=== PATIENT | female | born 1985 | race Caucasian/White ===

== ENCOUNTER 2022-06-17 12:24 | Outpatient (CLI) | payer BC, SELFPAY ==
[2022-06-18 13:39] LABS: Albumin* 3.9 g/dL (3.3-5.0)
[2022-06-18 13:40] LABS: Chloride* 102 mmol/L (96-114); Potassium* 3.9 mmol/L (3.6-5.1); Sodium* 138 mmol/L (135-149)
[2022-06-18 13:42] LABS: Bilirubin Total* 1.5 mg/dL (0.1-1.5); Carbon Dioxide* 29 mmol/L (20-32); Cholesterol* 158 mg/dL (90-199); Creatinine* 0.7 mg/dL (0.5-1.5); Estimated Glomerular Filt Rate 114 ml/min
[2022-06-18 13:43] LABS: Alanine Aminotransferase* 19 U/L (4-35); Alkaline Phosphatase* 56 U/L (40-150); Aspartate Amino Transferase* 30 U/L (12-35); Blood Urea Nitrogen* 12 mg/dL (5-24); Calcium* 8.5 mg/dL (8.4-10.6); Glucose* 85 mg/dL (60-115); HDL Cholesterol* 86 mg/dL (>=50); LDL Cholesterol Calculated 63 mg/dL (<100); Total Protein* 6.8 g/dL (6.0-8.3); Triglycerides* 43 mg/dL (40-149)
== END 2022-06-17 12:25 | disposition home or self-care (01) ==
LOC: LKVREF 12:24
PROVIDERS: Visit Provider Physician Assistant Medical
DX: Z01.419 Encounter for gynecological examination (general) (routine) without abnormal findings (principal); Z11.3 Encounter for screening for infections with a predominantly sexual mode of transmission
CPT/HCPCS: 87624; 88175

== ENCOUNTER 2022-06-18 10:05 | Outpatient (CLI) | payer BC, SELFPAY | END 2022-06-18 10:06 | disposition home or self-care (01) | LOC: LKVREF 06-21 13:15 | PROVIDERS: Visit Provider Physician Assistant Medical | DX: Z13.0 Encounter for screening for diseases of the blood and blood-forming organs and certain disorders involving the immune mechanism (principal); Z13.1 Encounter for screening for diabetes mellitus; Z13.220 Encounter for screening for lipoid disorders | CPT/HCPCS: 80053; 80061; 84443; 85018 ==

== ENCOUNTER 2022-10-01 07:07 | Outpatient (CLI) | payer BC, SELFPAY ==
--- NOTE | 2022-10-01 07:15 | CRLHL7_ITS ---
For Patients: As a result of the Century Cures Act, medical imaging exams and procedure reports are released immediately into your electronic medical record. You may view this report before your referring provider. If you have questions, please contact your health care provider. INDICATION: mid pelvic pain COMPARISON: none TECHNIQUE: 2D sinha scale and color Doppler images were acquired of the pelvis using a transabdominal and transvaginal approach. Power Doppler evaluation of both ovaries also performed. FINDINGS: Sonographic images demonstrate a normal size and smooth outer contour of the uterus. Uterus measures 9.0 cm in length by 4.8 cm in AP diameter by 5.3 cm in transverse dimension. The myometrium has a normal uniform echotexture. The endometrial lining measures 12 mm in composite thickness. The right ovary measures 3.2 x 2.2 x 3.0 cm in size and the left ovary measures 4.7 x 3.4 x 3.4 cm. The ovaries demonstrate normal arterial and venous blood flow on color Doppler analysis. Normal power Doppler evaluation of both ovaries. Hypoechoic cyst right ovary measuring 1.4 x 1.6 x 1.3 cm. Simple anechoic cyst left ovary measuring 2.9 x 2.4 x 2.9 cm. There are no suspicious fluid collections within the cul-de-sac. IMPRESSION: Hemorrhagic right ovarian cyst measuring 1.6 cm. Simple left ovarian cyst measuring 2.9 cm. No torsion. No excess pelvic free fluid. No uterine fibroid. Dictated by Hernan Gipson MD @ 10/01/2022 8:29:46 AM (Electronically Signed)
== END 2022-10-01 07:08 | disposition home or self-care (01) ==
LOC: US 07:08
PROVIDERS: PCP Physician Assistant Medical; Visit Provider Obstetrics & Gynecology
DX: R10.2 Pelvic and perineal pain (principal); N83.201 Unspecified ovarian cyst, right side; N83.202 Unspecified ovarian cyst, left side
CPT/HCPCS: 76830; 76856; 93976

== ENCOUNTER 2023-07-30 08:52 | Outpatient (CLI) | payer BC, SELFPAY ==
[2023-07-30 14:51] LABS: Chlamydia DNA Amplified* NOT DETECTED (No Detected); GC DNA Amplified* NOT DETECTED (No Detected)
== END 2023-07-30 08:53 | disposition home or self-care (01) ==
PROVIDERS: PCP Physician Assistant Medical; Visit Provider Physician Assistant Medical
DX: Z00.00 Encounter for general adult medical examination without abnormal findings (principal); Z11.3 Encounter for screening for infections with a predominantly sexual mode of transmission; Z13.0 Encounter for screening for diseases of the blood and blood-forming organs and certain disorders involving the immune mechanism; Z13.1 Encounter for screening for diabetes mellitus; Z13.6 Encounter for screening for cardiovascular disorders
CPT/HCPCS: 80053; 80061; 84443; 87491; 87591

== ENCOUNTER 2023-08-21 14:21 | Outpatient (CLI) | payer BC, SELFPAY | END 2023-08-21 14:22 | disposition home or self-care (01) | LOC: NFLDREF 08-24 17:32 | PROVIDERS: PCP Physician Assistant Medical; Referring Provider Physician Assistant Medical; Visit Provider Physician Assistant Medical | DX: R17 Unspecified jaundice (principal) | CPT/HCPCS: 80076; 86703; 86803 ==

== ENCOUNTER 2023-10-24 09:49 | Outpatient (CLI) | payer BC, SELFPAY ==
--- NOTE | 2023-10-24 10:15 | CRLHL7_ITS ---
For Patients: As a result of the Cures Act, medical imaging exams and procedure reports are released immediately into your electronic medical record. You may view this report before your referring provider. If you have questions, please contact your health care provider. INDICATION: First trimester scan, establish dates. COMPARISON: None. TECHNIQUE: Real-time sinha-scale imaging of the pelvis was performed. FINDINGS: Sonographic imaging demonstrates a single living intrauterine gestation. The embryo demonstrates a regular cardiac rate measuring 163 beats per minute. The embryo`s crown-rump length measurement of 3.2 cm corresponds to a gestational age of 10 weeks 1 day with a sonographic due date of 05/20/2024. There is a normal-appearing yolk sac. There are no gross abnormalities noted within the embryo at this early state of development. The gestational sac has a normal appearance. There is no evidence of a perigestational hemorrhage. The amount of fluid within the sac appears appropriate for gestational age. The cervix is closed. The myometrium appears normal. The ovaries are of normal size. There are no suspicious fluid collections noted in the cul-de-sac. IMPRESSION: Normal first trimester OB ultrasound exam. Gestational age calculated at 10 weeks 1 day with a sonographic due date of 05/20/2024. Dictated by Hernan Gipson MD @ 10/30/2023 6:24:37 AM (Electronically Signed)
== END 2023-10-24 09:50 | disposition home or self-care (01) ==
LOC: US 10:04
PROVIDERS: PCP Physician Assistant Medical; Visit Provider Advanced Practice Midwife
DX: Z34.91 Encounter for supervision of normal pregnancy, unspecified, first trimester (principal); Z3A.10 10 weeks gestation of pregnancy
CPT/HCPCS: 76817; 80076

== ENCOUNTER 2023-11-05 16:30 | Outpatient (CLI) | payer BC, SELFPAY | END 2023-11-05 16:31 | disposition home or self-care (01) | LOC: NFLDREF 11-12 16:17 | PROVIDERS: PCP Physician Assistant Medical; Referring Provider Physician Assistant Medical; Visit Provider Physician Assistant | DX: Z34.91 Encounter for supervision of normal pregnancy, unspecified, first trimester (principal) | CPT/HCPCS: 86592; 86703; 86704; 86706; 86762; 86787; 86803; 86850; 86900; 86901; 87086; 87340 ==

== ENCOUNTER 2024-02-24 14:55 | Outpatient (CLI) | payer BC, SELFPAY ==
--- NOTE | 2024-02-24 16:00 | US_ITS ---
Patient: CECILIA KOCH Facility:?[facility] Patient ID:?[id number] Site Patient ID:?[id number]. Site :?[id number] Study:?US-Extremity Right LEV-02/24/2024 3:38:48 PM Ordering Physician:LEYDA NEFF Final Report: INDICATION: Right leg pain. COMPARISON: None available. TECHNIQUE: Static and compression grayscale and spectral (including color) Doppler ultrasound of the right lower extremity. FINDINGS: Deep veins: The right common femoral, deep femoral, superficial femoral, popliteal, posterior tibial, peroneal and contralateral left common femoral veins are patent and free of clot. Superficial veins: The imaged right great saphenous vein is patent and free of clot. Extravascular findings: No significant incidental findings. IMPRESSION: No evidence of DVT in the right lower extremity. Dictated by Tyler Henry MD @ 02/24/2024 3:57:28 PM Signed by:?Tyler Henry MD @02/24/2024 3:57:28 PM (Electronic Signature)
== END 2024-02-24 14:56 | disposition home or self-care (01) ==
LOC: US 14:55
PROVIDERS: PCP Physician Assistant Medical; Visit Provider Obstetrics & Gynecology
DX: M79.604 Pain in right leg (principal)
CPT/HCPCS: 86592; 93971

== ENCOUNTER 2024-03-31 08:01 | Outpatient (CLI) | payer BC, SELFPAY ==
--- NOTE | 2024-03-31 08:15 | CRLHL7_ITS ---
For Patients: As a result of the Century Cures Act, medical imaging exams and procedure reports are released immediately into your electronic medical record. You may view this report before your referring provider. If you have questions, please contact your health care provider. INDICATION: Third trimester scan, evaluate growth. IVF, AMA COMPARISON: 10/24/2023 TECHNIQUE: Real time sinha scale imaging of the fetus was performed. FINDINGS: Sonographic imaging demonstrates a single living intrauterine gestation. Fetus demonstrates a regular cardiac rate of 147 beats per minute. Fetus has a vertex position. The placenta lies anteriorly. Amniotic fluid volume appears normal and there is a single deepest vertical pocket: 7.0 cm. The estimated weight is 1845gm which lies at the 17th %. BPD 27th percentile. HC is 34th percentile. AC 18th percentile. FL 14th percentile the HC/AC ratio measures 1.10 range (0.96-1.13). IMPRESSION: Sonographic gestational age 32 weeks 2 days and sonographic due date 05/24/2024. Good correlation with dates. Estimated weight 17th percentile. Abdominal circumference 18th percentile. Dictated by Hernan Gipson MD @ 03/31/2024 11:56:17 AM (Electronically Signed)
== END 2024-03-31 08:02 | disposition home or self-care (01) ==
LOC: US 08:01
PROVIDERS: PCP Physician Assistant Medical; Visit Provider Advanced Practice Midwife
DX: O09.813 Supervision of pregnancy resulting from assisted reproductive technology, third trimester (principal); O09.523 Supervision of elderly multigravida, third trimester; Z3A.32 32 weeks gestation of pregnancy
CPT/HCPCS: 76816

== ENCOUNTER 2024-04-26 12:46 | Outpatient (CLI) | payer BC, SELFPAY ==
--- NOTE | 2024-04-26 12:53 | CRLHL7_ITS ---
For Patients: As a result of the Century Cures Act, medical imaging exams and procedure reports are released immediately into your electronic medical record. You may view this report before your referring provider. If you have questions, please contact your health care provider. OB ULTRASOUND INDICATION: IVF , advanced maternal age, size less than dates. [place] by LMP: 05/21/2024. GA: 36w, 3d. Single. CERVIX: Not visualized. POSITIONING: Vertex. AMNIOTIC FLUID: 7.4 cm SDP BIOPHYSICAL PROFILE: Total score: 8. Gross body movements: 2. tone: 2. Respiratory activity: 2. Amniotic fluid: 2. PLACENTA: Technique: Transabdominal. PLACENTA POSITION: Anterior. DOPPLER: heart rate: 155 bpm. Biometry: BPD: 8.8 cm. 35w, 5d, 38 percent. HC: 32.6 cm. 37w, 0d, 32 percent. AC: 32.0 cm. 35w, 6d, 46 percent. FL: 6.8 cm. 34w, 5d, 10 percent. FL/AC ratio: 21.10 percent. HC/AC ratio: 1.02. EFW: 2739 g. Weight: 6 lbs, 1 oz. age by this US: 35w, 6d. [place] by this US: 05/25/2024. Percentile by [place]: 32 percent. IMPRESSION: 1. Estimated weight is at the 32nd percentile. 2. Normal biophysical profile score of 8/8. Sreekanth Franklin M.D. Body/Diagnostic Radiologist [email or web address] SP/Dictated by: Sreekanth Franklin MD @ 04/27/2024 12:39:00 PM (Electronically Signed)
== END 2024-04-26 12:47 | disposition home or self-care (01) ==
LOC: US 12:47
PROVIDERS: PCP Physician Assistant Medical; Visit Provider Obstetrics & Gynecology
DX: Z34.93 Encounter for supervision of normal pregnancy, unspecified, third trimester (principal); Z3A.35 35 weeks gestation of pregnancy
CPT/HCPCS: 76816; 76819; 87081; 87653

== ENCOUNTER 2024-05-14 05:24 | Inpatient (IN) | payer BC, SELFPAY ==
[2024-05-14] VITALS (28 sets, daily range): BP systolic 89–123; BP diastolic 55–78; PULSE 57–102; RESP 15–16; TEMP 36.3–36.8; O2SAT 96–100; BMI 29.5
[2024-05-14 05:52] LABS: Hematocrit 37.2 % (33.0-51.0); Hemoglobin* 12.8 gm/dL (12.0-16.0); Lymphocytes Percent Auto 21.8 % (20-44); Mean Corpuscular HGB Conc 34 gm/dL (32-36); Mean Corpuscular Hemoglobin 34 pg (26-34); Mean Corpuscular Volume 98 fL (80-100); Monocytes Percent Auto 9.1 % (0.0-11.0); Neutrophils Percent Auto 68.1 % (42.0-72.0); Platelet Count* 223 K/uL (140-440); RDW Coefficient of Variation % 13.4 % (11.5-15.5); Red Blood Count 3.78 m/uL (4.00-5.20); White Blood Count* 6.69 K/uL (4.50-11.00)
[2024-05-14 05:53] LABS: Basophils Absolute Auto 0.02 K/uL (0.00-0.30); Basophils Percent Auto 0.3 % (0.0-3.0); Eosinophils Absolute Auto 0.03 K/uL (0.00-0.50); Eosinophils Percent Auto 0.4 % (0.0-7.0); Immature Granulocytes Abs Auto 0.02 K/uL (0.00-0.30); Immature Granulocytes Pct Auto 0.3 %; Lymphocytes Absolute Auto 1.46 K/uL (0.90-2.90); Neutrophils Absolute Auto 4.55 K/uL (1.7-7.0)
[2024-05-14 05:54] LABS: Slide Review Reflex No
[2024-05-14] MEDS: LACTATED RINGERS 1000 ML 1,000 ML IV (05:54)
--- NOTE | 2024-05-14 07:14 | W.PM.LDBA ---
Subjective History of Present Illness Date Seen: 05/14/24 Narrative: Patient is being admitted to Labor and Delivery for repeat with bilateral salpingectomy. She is a 39 year old at 39 0/7 weeks' gestation. Her full history and physical was dictated by Dr. Sandoval . Please see this for details. Specific Issues/Plans : Vic . Children: Cole Soto. Baby: Girl! H&P 04/16 Dr. Sandoval 1. IVF , male factor infertility Level 2 ultrasound, consult with [facility] 01/06/2024: normal level 2 USN. echo scheduled with [facility] 01/27/2024: normal Growth ultrasound at 32 weeks: as below. Weekly NST starting at 36 weeks: ordered 2. Hx C/S x2. Planning repeat. Considering bilateral salpingectomy 3. AMA 01/06/2024 M at [facility] level 2 US: No anomalies noted. Normal echocardiogram. Recommend growth ultrasound at 32 weeks and recommend begin weekly testing at 36 weeks. 4. Migraines magnesium daily Fioricet if needed (worked well during previous ) Pre implantation genetics negative ULTRASOUNDS: Level 2 ultrasound 01/06/24: anterior placenta no previa, 3 vessel cord, normal fluid, EFW 55%, AC 56%, no anomalies echocardiogram 01/29: normal 32 weeks (03/31/24): cephalic, normal fluid, EFW 17% AC 18% 36 3/7 weeks (04/26/24): cephalic, SDP 7.4, EFW 32%, AC 46%, BPD 38%, HC 32%, FL 10% OB - Problem Based A/P Additional Plan (1) Previous delivery affecting : Status: Acute Plan Repeat with bilateral salpingectomy today Delivery/Labor/Induction Plan Plan: Section OB Exam Physical Exam Vital signs: Temp Pulse BP 98.2 F 102 H 123/72 05/14/24 06:00 05/14/24 05:32 05/14/24 05:32 Narrative: Physical exam: General: No acute distress Psych: Alert and oriented x3, full affect HEENT: Normocephalic, atraumatic Heart: Regular rate and rhythm, no murmur rub or gallop Lungs: Clear to auscultation bilaterally Abdomen: Soft, nontender, gravid, cephalic lie Lower extremities: 1+ bilateral edema, no erythema
[2024-05-14] MEDS: CEFAZOLIN 2 GM INJ IVP (07:28)
[2024-05-14] MEDS: LACTATED RINGERS 1000 ML 1,000 ML 100 ML IV ×2 (07:44→08:25)
--- NOTE | 2024-05-14 07:51 | W.ANESCHARGE ---
Anesthesia Charges Start Date/Time Anesthesia Start Date: 05/14/24 Anesthesia Start Time: 07:18 Stop Date/Time Anesthesia Stop Date: 05/14/24 Anesthesia Stop Time: 09:15
--- NOTE | 2024-05-14 07:53 | SUR.OPER ---
placenta discarded per Dr. Sandoval confirmed at 0758
--- NOTE | 2024-05-14 08:06 | W.ANESCHARGE ---
Anesthesia Charges Start Date/Time Anesthesia Start Date: 05/14/24 Anesthesia Start Time: 07:18 Stop Date/Time Anesthesia Stop Date: 05/14/24 Anesthesia Stop Time: 09:15
--- NOTE | 2024-05-14 08:10 | W.PM.NB ---
Nerve Block Nerve Block Time Seen by Provider: 09:10 Date Seen: 05/14/24 Type of block requested by surgeon for post-operative analgesia: TAP Side: bilateral Time out performed: Yes Verification of patient name: Yes Verification of date of : Yes Site marking: site marked Name of person performing procedure: Matt Reaves Continuous monitoring Was continuous monitoring of O2 sat, B/P, electronic device monitor, recorded every 15 minutes?: Yes Procedure Checklist: sterile prep, needles and gloves Ultrasound guided. Images saved: Yes Medications given in 5ml increments after negative aspiration: Marcaine %: 0.25 mL: 30 Needle gauge: 20 and Exparel mL: 10 Needle gauge: 20 Patient tolerated procedure well: Yes Additional comments: Injected in 5ml increments after negative aspiration Block Charges Block Charge (with Pro Fee): TAP Bilateral Use of Ultrasound Machine for Block: Yes- US Guidance/pain block
[2024-05-14] MEDS: KETOROLAC 30 MG/ML inj IVP ×3 (08:40→20:38)
--- NOTE | 2024-05-14 09:50 | P.OBPRC_ITS ---
Procedure Date of procedure: 05/14/24 Procedure Done: Global Will [facility] bill your pro fee for this procedure?: Yes Procedure Description: PREOPERATIVE DIAGNOSIS: 39 weeks' gestation Two previous deliveries Undesired fertility POSTOPERATIVE DIAGNOSIS: Same PROCEDURE: Repeat low-transverse section with bilateral salpingectomy SURGEON: Tenisha Sandoval MD ANESTHESIA: Spinal IV FLUIDS: 2100 mL QBL: 632 mL FINDINGS: 1. Female , cephalic OA presentation, Apgars of 9 and 9, weight 3270 g, 7 lb and 3 oz 2. Simple cyst measuring about 2 cm adjacent to the left ovary containing clear fluid. Filmy adhesions of the right ovary to the posterior right fundus of the uterus. Bladder reflection was advanced along the lower uterine segment. Otherwise normal appearance to uterus, bilateral tubes and ovaries. COMPLICATIONS: None PROCEDURE IN DETAIL: Patient was taken to the operating room with IV running. She received cefazolin in preoperative prophylaxis. Spinal anesthesia was administered. Sandoval catheter was inserted. She was prepped and draped in the usual sterile fashion. Anesthesia was tested and found to be adequate. A low-transverse skin incision was made with a scalpel and carried through to the underlying layer of fascia with the scalpel. The subcutaneous fat was dissected off the underlying fascia with Bovie. The fascia was nicked in the midline with a scalpel, and this incision was extended laterally with scissors. The fascia was dissected off the underlying rectus muscles superiorly using the scissors. Peritoneum was entered in the process. The rectus muscles were in the midline. The peritoneal opening was widened with traction. Csear O retractor was inserted and tightened down, providing excellent visualization of the lower uterine segment. The bladder reflection was advanced along the lower uterine segment. A bladder flap was created with a combination of sharp and blunt dissection. Low-transverse uterine incision was made with a scalpel. Incision was widened bluntly. The 's head was grasped through the hysterotomy and delivered with the help of fundal pressure. The remainder of the body delivered without incident. Cord was clamped and cut after 30 seconds. was handed off to attending nurses. The placenta was delivered with gentle traction on the cord. The uterus was exteriorized and cleaned of all clots and debris with the dry lap pad. The hysterotomy was reapproximated with 0 Vicryl in a running, locked fashion. Second layer of the same suture was used in imbricating fashion to obtain hemostasis. The adnexa were examined and noted to be normal in appearance. Attention was turned to the left fallopian tube, which was elevated with help of Linda clamps. The LigaSure Exact device was used to divide the left tube at the cornua, and dissection was carried medially to laterally through the broad ligament, ultimately dividing the blood supply laterally and freeing the tube. Hemostasis was assured with Bovie. This procedure was repeated on the patient's right side, beginning laterally and moving medially. Again, hemostasis was assured with Bovie. The right ovary was noted to be adherent to the right fundal uterus. There was some oozing of the serosa at this site. This was addressed with Bovie electric cautery. There was a 2 cm simple cyst with clear fluid adjacent to left ovary. This ruptured when handled, releasing clear fluid. There was no bleeding. The cul-de-sac was cleansed with a dampened laparotomy sponge. The uterus was returned to the abdomen. The gutters were cleansed with dampened laparotomy sponge, removing any further clots and debris. The bladder was back filled with some 120 mL of sterile formula to delineate the superior most edges, and was found to be well away from the hysterotomy repair. The Cesar O retractor was removed. The hysterotomy was reexamined and found to be hemostatic. The peritoneum was reapproximated with 2 0 Vicryl in a running fashion. The rectus muscles were examined and Bovie used on bleeding vessels. The fascia was reapproximated with 0 Vicryl in a running fashion. Subcutaneous fat was irrigated and Bovie used on oozing vessels. The subcutaneous fat was reapproximated with 2 0 plain gut suture in an interrupted fashion. The skin was closed with a subcuticular stitch of 4-0 Monocryl. Surgical glue was applied above this. Patient tolerated procedure well was taken to recovery area in stable condition. Pathology: specimen obtained, sent to pathology Surgery Debrief Performed: Yes Surgery Debrief Comment: I confirmed verbally my desire to send bilateral fallopian tubes for surgical pathology assessment Infant total score - 1 minute: 9 total score - 5 minute: 9
[2024-05-14] MEDS: LACTATED RINGERS 1000 ML 1,000 ML 200 ML IV (18:06)
[2024-05-14] MEDS: DOCUSATE SODIUM 100 MG CAPSULE PO (18:07)
[2024-05-15] VITALS (11 sets, daily range): BP systolic 102–110; BP diastolic 67–74; PULSE 68–85; RESP 16; TEMP 36.4–36.9; O2SAT 97–99
[2024-05-15] MEDS: KETOROLAC 30 MG/ML inj IVP ×3 (02:43→14:28)
--- NOTE | 2024-05-15 08:13 | PM.OBPNVD1 ---
OB - PN:Subj Subjective Time Seen by Provider: 07:45 Date Seen: 05/15/24 Patient comments OB post-: no complaints status: Narrative: Estrellita is a 39-year-old seen on postop day 1 from a repeat delivery with bilateral salpingectomy. was complicated by AMA, IVF and history of . She had an uncomplicated and salpingectomy. , she has done well. Estrellita notes she is feeling well this morning with no acute concerns. She does note she has become more aware of her incision but denies difficulty with pain control. She is maintained on ibuprofen and Tylenol, discussed narcotics are available if needed for breakthrough pain. I expect she might just be feeling her incision more as tap blocks wear off. Appetite is good, no nausea or vomiting. Her catheter came out this morning, has yet to spontaneously void. She is passing gas. She ambulates without difficulty, no dizziness/lightheadedness, chest pain or shortness of breath. Lochia is minimal. Baby John is doing well, though the family did not get much sleep as she was cluster feeding overnight. They are without difficulty. OB - PN: Obj Exam Physical Exam: Vital signs: Temp Pulse Resp BP Pulse Ox O2 Del Method 97.6 F 75 16 109/74 99 Room Air 05/15/24 07:42 05/15/24 07:42 05/15/24 07:42 05/15/24 07:42 05/15/24 07:42 05/15/24 07:42 Narrative: General: Alert and oriented, no acute distress Abdomen: Soft, nontender nondistended. Fundus palpates at 1 below umbilicus. Surgical dressing in place, clean and dry. Discussed that dressing can be removed at any time now, where ultimately she has decided to remove it in the shower later. Extremities: Trace extremity edema. Calves are nontender, non erythematous. Urinary Catheter Management: 2-way Urethral: Cath placed during this visit: yes, but has since been removed by the nurse Reason for continuing: decision to DC catheter Insertion date: 05/14/24 Insertion time: 07:30 Removal date: 05/15/24 Removal time: 04:45 OB - PN: A/P Delivery Assessment and Plan (1) Previous delivery affecting : Status: Acute Plan Ms. Merlos is a 39yp seen on POD1 from repeat with bilateral salpingectomy. Pregnacy was complicated by AMA, IVF and history of C/S. Delivery and course to present has been uncomplicated. Plan to continue to progress in postop and milestones today. Catheter came out a few hours ago, she has yet to spontaneously void but we monitor throughout day for urinary retention. Plan for pain is NSAIDs/tylenol and oxycodone PRN for breakthrough pain. Patient to remove dressing in the shower later today. Abdominal exam benign. Her post-op Hgb has yet to be collected, will follow up this result when available. Dispo: inpatient today. Likely DC to home on POD2-3. Plan day: 1 Plan: routine care
[2024-05-15 08:35] LABS: Hemoglobin* 11.3 gm/dL (12.0-16.0)
[2024-05-15] MEDS: DOCUSATE SODIUM 100 MG CAPSULE PO (08:46)
[2024-05-15] MEDS: IBUPROFEN 600 MG TABLET PO (18:37)
[2024-05-15 18:57] LABS: Rapid Plasma Reagin (RPR) Non Reactive (Non Reactive)
[2024-05-16] MEDS: IBUPROFEN 600 MG TABLET PO ×3 (00:29→13:17)
--- NOTE | 2024-05-16 08:15 | P.DS_ITS ---
DS: Providers Provider Time Seen by Provider: 08:15 Date Seen: 05/16/24 Date of admission: 05/14/24 05:24 Primary care physician: Apoorva Rizzo PA-C Admitting Clinician: Tenisha Sandoval MD Attending Physician on discharge: Adrien Lemon MD Exam Narrative: Exam Narrative: General: Alert and oriented, in no acute distress Psych: Appropriate mood and affect Abdomen: Soft, nondistended. Mild tenderness to palpation in the bilateral lower quadrants, consistent with postoperative state. No fundal tenderness. No rebound or guarding. Incision is well approximated without erythema, ecchymosis or drainage. Superficial surgical glue on. Extremities: No significantly edema, calf erythema or tenderness Const: Vital Signs, click to edit/add: Vital Signs - 24 hr 05/15/24 17:06 05/15/24 23:50 Temperature 97.8 F 98.4 F Pulse Rate [Pulse Oximeter] 85 68 Respiratory Rate 16 16 Blood Pressure [Le ft Arm] 110/73 110/67 Pulse Oximetry 99 98 Oxygen Delivery Me thod Room Air Room Air OB - DS: Summary Hospital Course Hospital Course: The patient is a 39 year old G 3 P 3 at 39 weeks gestation that was admitted to the Center on 05/14/24 for repeat delivery and bilateral salpingectomy. She had an uncomplicated delivery. She delivered a viable female infant. She is breast feeding. the patient has done well. Estrellita notes she is feeling well this morning with no acute concerns. Her pain is well controlled on ibuprofen and Tylenol. She has not required any narcotics yet, but is open to a small prescription for this to have on hand at home as needed. Overnight, she notes some difficulty sleeping due to discomfort or awareness of her incision. She denies any incisional erythema, bruising or drainage. Appetite at baseline, no nausea or vomiting. Voiding spontaneously without difficulty. Passing gas, no bowel movement yet. Lochia is minimal. Ambulates without dizziness or lightheadedness. Patient is baby [place] successfully. She notes should get fatigued at the breast, where they are working on stimulation to optimize duration of . Peripartum Data Infant delivery method: Repeat Section Procedures: Procedures Operation Date: 05/14/24 07:15 Actual Procedure Side Surgeon p Repeat Section, Bilateral Salpingectomy Not Applicable Tenisha Sandoval MD Procedures: tubal ligation/salpingectomy Infant Gender: Female Time Spent with Patient Time attestation: Total time spent providing and/or coordinating discharge services: Discharge Plan Discharge Disposition: Home, Self-Care Date of Admission: 05/14/24 05:24 Primary Care Provider: Apoorva Rizzo Condition: Stable Anticipated Discharge Date/Time: 05/16/24 08:18 Discharge Medications: New oxycodone 5 mg Tablet 5 mg PO Q6H PRN (Reason: Pain) Qty: 10 0RF Continued ferrous sulfate 325 mg (65 mg iron) tablet 325 mg PO QDAY Classic 28 mg iron- 800 mcg tablet 1 tab PO DAILY crlrtvzdhn-qwcghziebgshf-xgih 50-300-40 mg capsule 1 cap PO Q8H PRN (Reason: pain) Qty: 20 0RF Discharge Orders: Discharge Order (Routine); Ordered 05/16/24 Ordered By: Jennifer Lemon Additional Instructions: Discharge instructions were reviewed with the patient including signs and symptoms of infection and home going medications Lifting Restrictions: 20 pounds for 6 weeks No not submerge incision under water X 2 weeks? Nothing vaginally for 6 weeks: no tampons or intercourse Pain medications: - Ibuprofen 600mg every 6 hours - Tylenol 1000mg every 6 hours - Oxycodone 5mg every 6 hours as needed for pain Do not drive while taking narcotic pain medication(s) Off Work or School for 8 weeks Symptoms to report to doctor: * Bleeding that saturates more than one pad per hour * Passing clots larger than the size of a golf ball * Pain not relieved by prescribed medication * Fever above 100.4 degrees Fahrenheit * A foul vaginal odor * Difficulty in emotions, mood, and functions * Thoughts of hurting yourself and/or * Painful, reddened area in your breast * Any drainage, redness, or tenderness in your IV/epidural site * Severe headache that doesn't improve after taking medications * Changes in vision, including temporary loss of vision, blurred vision, and/or light sensitivity * Upper abdominal pain (usually under ribs on the right side) * Decrease in urination or painful, frequent urinating * Chest pain * Shortness of breath * Tenderness or pain with redness and/swelling in the calf(s) of your leg Optional 2-week visit: incision check, discuss infant feeding concerns, review control options and screen for anxiety/depression. 6-week visit for an annual exam. consultation services are available to all mothers and babies for the first year after delivery.? To make an appointment, please call [phone]. Follow Up Appointments: Apoorva Rizzo PA-C [Primary Care Provider] - Forms: [employer] Info Instructions
[2024-05-16 09:00] VITALS: BP 110/68; PULSE 89; RESP 16; TEMP 36.7; O2SAT 97
[2024-05-16] MEDS: DOCUSATE SODIUM 100 MG CAPSULE PO (09:54)
== END 2024-05-16 13:57 | disposition home or self-care (01) | DRG 540 ==
PROVIDERS: Admitting Provider Obstetrics & Gynecology; PCP Physician Assistant Medical; Visit Provider Obstetrics & Gynecology
PROC: 10D00Z1 Extraction of Products of Conception, Low, Open Approach (ICD-10-PCS; CPT 59514; principal; 2024-05-14 07:15)
DX: O34.211 Maternal care for low transverse scar from previous cesarean delivery (principal); G89.18 Other acute postprocedural pain; G43.909 Migraine, unspecified, not intractable, without status migrainosus; Z30.2 Encounter for sterilization; Z37.0 Single live birth; Z3A.39 39 weeks gestation of pregnancy
CPT/HCPCS: 01961; 36415; 64488; 76942; 85018; 85025; 86592; 86850; 86900; 86901; 88302; A9270; C9290; J0665; J0690; J1885; J2274; J2371; J2405; J2590; J7120

== ENCOUNTER 2025-06-20 14:21 | Outpatient (CLI) | payer BC, SELFPAY | END 2025-06-20 14:22 | disposition home or self-care (01) | PROVIDERS: PCP Physician Assistant Medical; Visit Provider Obstetrics & Gynecology | DX: N90.89 Other specified noninflammatory disorders of vulva and perineum (principal); Z11.59 Encounter for screening for other viral diseases | CPT/HCPCS: 87529 ==

== ENCOUNTER 2025-10-13 15:21 | Outpatient (CLI) | payer BC, SELFPAY ==
--- NOTE | 2025-10-13 15:40 | CRLHL7_ITS ---
For Patients: As a result of the Century Cures Act, medical imaging exams and procedure reports are released immediately into your electronic medical record. You may view this report before your referring provider. If you have questions, please contact your health care provider. COMPARISON: BASELINE TECHNIQUE: Digital mammogram in CC and MLO projections including computer-aided detection (CAD) and tomosynthesis. BREAST COMPOSITION: The breasts are heterogeneously dense, which may obscure small masses. FINDINGS: No suspicious findings. ASSESSMENT: BI-RADS 2 Benign RECOMMENDATION: Annual screening mammogram. A lay language report of this examination will be provided to the patient. Dictated by: Hernan Gipson MD @ 10/14/2025 08:35:19 (Electronically Signed)
== END 2025-10-13 15:22 | disposition home or self-care (01) ==
LOC: MAMMO 15:21
PROVIDERS: PCP Physician Assistant Medical; Visit Provider Physician Assistant Medical
DX: Z12.31 Encounter for screening mammogram for malignant neoplasm of breast (principal); R92.333 Mammographic heterogeneous density, bilateral breasts
CPT/HCPCS: 77063; 77067